=== PATIENT | male | born 1940 | race Caucasian/White ===

== ENCOUNTER 2018-02-01 09:31 | Emergency (ER) | payer MEDICARE, BC ==
[2018-02-01 09:56] VITALS: BP 94/69
--- NOTE | 2018-02-01 10:33 | XRAY Report ---
Reason: fall. pain swelling Procedure Date: 02/01/2018 Accession Number: [id number] / [id number] Procedure: XR - Hand 3 View LT CPT Code: FULL RESULT: EXAM: LEFT HAND RADIOGRAPHY EXAM DATE: 02/01/2018 09:59 AM. CLINICAL HISTORY: Fall. pain swelling. COMPARISON: None. TECHNIQUE: 3 views. FINDINGS: Bones: Comminuted third metacarpal fracture from proximal to distal but not definitely into the joint 5 mm offset. Comminuted fourth metacarpal fracture with vertical components without significant offset. Osteopenia Joints: Degenerative changes first metacarpocarpal joint space. STT joint space osteophyte. PIP and DIP joint space narrowing. Soft Tissues: Normal. No soft tissue swelling. IMPRESSION: 1. Third and fourth metacarpal fractures. 2. Osteopenia 3. DJD RADIA
[2018-02-01] MEDS ORDERED: ACETAMINOPHEN 325 MG TABLET PO STA (11:26)
--- NOTE | 2018-02-01 11:35 | ED Physician Documentation ---
History of Present Illness - Stated complaint Stated Complaint: LEFT HAND INJ - Chief complaint Chief Complaint: Ext Problem - Additonal information Additional information: hx from pt 77 male long standing balance issues and falls uses a walker fell and hurt his hand several days ago no head neck chest abd hip injury - just his L hand Review of Systems Musculoskeletal: reports: Other (hand injury). denies: Neck pain, Back pain Neurologic: denies: Head injury PD PAST MEDICAL HISTORY - Past Medical History Past Medical History: Yes - Present Medications Home Medications: Ambulatory Orders Medication Instructions Recorded Confirmed Finasteride 5 mg PO DAILY 12/31/15 01/14/16 Propranolol [Inderal] 40 mg PO DAILY 12/31/15 01/14/16 Tamsulosin [Flomax] 0.4 mg PO DAILY 12/31/15 01/14/16 - Allergies Allergies/Adverse Reactions: Allergies Allergy/AdvReac Type Severity Reaction Status Date / Time No Known Drug Allergies Allergy Verified 02/01/18 09:56 - Social History Does the pt smoke?: No Smoking Status: Never smoker PD ED PE NORMAL - Vitals Vital signs reviewed: Yes - General General: Alert and oriented X 3 - Cardiac Cardiac: RRR - Respiratory Respiratory: No respiratory distress, Clear bilaterally - Derm Derm: Other (ages bruises, abrasion to L lower leg) - Extremities Extremities: Other (L hand swollen and bruised, no open wound, nl cascade, MSV intact, wrist NT) Results - Vitals Vitals: Vital Signs - 24 hr 02/01/18 09:54 Temperature 36.6 C Heart Rate 98 Respiratory 16 Rate Blood Pressure 94/69 O2 Saturation 98 Oxygen O2 Source Room air - Rads (name of study) hand Radiology: See rad report (comminuted fx 3rd MC 5mm displacement, comminuted 4th MC fx s displacement) Procedures - Splint (location) LUE Splint applied by: Tech Type of splint: Short arm, Volar cock up (to tips of fingers) Other: Patient tolerated well, No complications, Neurovascular intact PD MEDICAL DECISION MAKING - Sepsis Event Vital Signs: Vital Signs - 24 hr 02/01/18 09:54 Temperature 36.6 C Heart Rate 98 Respiratory 16 Rate Blood Pressure 94/69 O2 Saturation 98 Oxygen O2 Source Room air Departure - Departure Disposition: 01 Home, Self Care Clinical Impression: Frequent falls Hand fracture, left Qualifiers: Encounter type: initial encounter Fracture type: closed Qualified Code(s): S62.92XA - Unspecified fracture of left wrist and hand, initial encounter for closed fracture Condition: Good Instructions: Falls Risks Prevent, ED Fx Hand Closed, ED Splint Care Fiberglass Follow-Up: [facility] [Provider Group] Comments: Your broke two bones in your hand and one of them is a bit displaced. We have splinted the hand to prevent more bone movement and to help with the pain. Tylenol for the pain Ice and elevation to decrease the swelling will help too. Please follow up with orthopedics - you may need a wire to hold the bone in place while it heals. Also you will have a hard time using your walker while your hand is splinted and healing - consider using a wheelchair for a few weeks - you can borrow one from the [facility]
== END 2018-02-01 12:21 | disposition home or self-care (01) ==
LOC: ED 09:31
DX: S62.303A Unspecified fracture of third metacarpal bone, left hand, initial encounter for closed fracture (principal); S62.305A Unspecified fracture of fourth metacarpal bone, left hand, initial encounter for closed fracture; W19.XXXA Unspecified fall, initial encounter; Z91.81 History of falling
CPT/HCPCS: 29125; 73130; 99283; A9270

== ENCOUNTER 2018-04-23 00:51 | Emergency (ER) | payer MEDICARE, BC ==
[2018-04-23 00:59] VITALS: BP 111/93
--- NOTE | 2018-04-23 01:13 | ED Physician Documentation ---
History of Present Illness - Stated complaint Stated Complaint: SLEEPLESSNESS - Chief complaint Chief Complaint: General - History obtained from History obtained from: Patient - History of Present Illness Timing: How many weeks ago (1) - Additonal information Additional information: c/o 1 week of insomnia. He says he has not had any effective sleep at night for approximately 1 week, and finally gets sleep most mornings for a few hours (9 AM until about noon). He initially denies h/o similar problem, but he then recalls his doctor did once prescribe a sleep medication for him; he says it would only work for a few hours, and it was many years ago and he cannot recall the name of the medication. Review of Systems Neurologic: denies: Headache Psychiatric: reports: Insomnia. denies: Hallucinations, Delusions, Anxiety PD PAST MEDICAL HISTORY - Past Medical History : Benign prostate hypertrophy - Present Medications Home Medications: Ambulatory Orders Medication Instructions Recorded Confirmed Finasteride 5 mg PO DAILY 12/31/15 01/14/16 Tamsulosin [Flomax] 0.4 mg PO DAILY 12/31/15 01/14/16 LORazepam [Lorazepam] 0.5 - 1 mg PO QPM PRN #20 tablet 04/23/18 - Allergies Allergies/Adverse Reactions: Allergies Allergy/AdvReac Type Severity Reaction Status Date / Time No Known Drug Allergies Allergy Verified 04/23/18 00:59 - Living Situation Living Situation: reports: Alone Living Arrangement: reports: At home - Social History Does the pt smoke?: No Smoking Status: Never smoker PD ED PE NORMAL - Vitals Vital signs reviewed: Yes - General General: Alert and oriented X 3, No acute distress, Well developed/nourished - Cardiac Cardiac: RRR, No murmur - Respiratory Respiratory: No respiratory distress, Clear bilaterally - Neuro Neuro: Alert and oriented X 3 - Psych Psych: Normal mood, Normal affect Results - Vitals Vitals: Vital Signs - 24 hr 04/23/18 00:53 Temperature 36.3 C L Heart Rate 109 H Respiratory 18 Rate Blood Pressure 111/93 H O2 Saturation 100 Oxygen O2 Source Room air PD MEDICAL DECISION MAKING - ED course Complexity details: considered differential, d/w patient ED course: Pleasant, conversant, and appropriate. Chief and only c/o is insomnia. He says he has 2 glasses of wine per night, but has not tonight nor last night. He is having significant stress in his life; his was placed in a NH for dementia in [place] earlier this year, and he subsequently sold their house in [place]. He denies SI. Departure - Departure Disposition: Home, Self Care Clinical Impression: Insomnia Qualifiers: Insomnia type: unspecified Qualified Code(s): G47.00 - Insomnia, unspecified Condition: Good Instructions: ED Insomnia Follow-Up: Elan Carroll MD [Primary Care Provider] - Within 1 week Prescriptions: LORazepam [Lorazepam] 0.5 - 1 mg PO QPM PRN #20 tablet PRN Reason: Insomnia Discharge Date/Time: 04/23/18 01:43
[2018-04-23] MEDS ORDERED: LORazepam 0.5 MG TABLET PO STA (01:27)
== END 2018-04-23 01:43 | disposition home or self-care (01) ==
LOC: ED 00:51
DX: G47.00 Insomnia, unspecified (principal)
CPT/HCPCS: 99283; A9270

== ENCOUNTER 2018-12-01 15:38 | Outpatient (CLI) | payer MEDICARE, BC ==
--- NOTE | 2018-12-02 15:43 | XRAY Report ---
Reason: L LOWER BACK PAIN Procedure Date: 12/01/2018 Accession Number: [id number] / [id number] Procedure: XR - Lumbar Spine 2 View CPT Code: FULL RESULT: EXAM: LUMBOSACRAL SPINE RADIOGRAPHY EXAM DATE: 12/01/2018 03:58 PM. CLINICAL HISTORY: L LOWER BACK PAIN. COMPARISONS: None. TECHNIQUE: 2 views. FINDINGS: Alignment: Within normal limits. No spondylolisthesis or scoliosis. Bones: Five [id number] lumbar vertebral bodies are present. Severe osteopenia, limiting evaluation for nondisplaced fractures. Severe compression deformities of L1 and L4 and moderate compression deformities of T12 and L5. Vertebroplasty changes of L2, L4, and L5. Disks: Multilevel degenerative disk disease, with moderate narrowing worse from L3-L5. Facets: Severe lower lumbar facet degenerative changes. Sacroiliac Joints: Unremarkable. Soft Tissues: The visualized bowel gas pattern is unremarkable. IMPRESSION: Multiple chronic appearing compression deformities with prior vertebroplasty changes at L2, L4, and L5. Moderate L1 compression deformity also present. Diffuse osteopenia. RADIA
== END 2018-12-01 15:39 | disposition home or self-care (01) ==
LOC: DI 15:38
PROVIDERS: ATTEND Internal Medicine
DX: M51.36 Other intervertebral disc degeneration, lumbar region (principal); M47.816 Spondylosis without myelopathy or radiculopathy, lumbar region; M43.8X6 Other specified deforming dorsopathies, lumbar region; M85.88 Other specified disorders of bone density and structure, other site
CPT/HCPCS: 72100

== ENCOUNTER 2020-02-13 15:13 | Outpatient (CLI) | payer MEDICARE, BC ==
--- NOTE | 2020-02-13 16:53 | DEXA Report ---
PROCEDURE: Dexa Spine and/or Hip INDICATIONS: LUMBAR COMPRESSION FX, OSTEOPENIA TECHNIQUE: Dual energy x-ray absorptiometry (DXA) was performed on a [employer] System. Regions measur ed are the AP Spine, femoral neck, and if needed forearm. COMPARISON: None. FINDINGS: Lumbar Spine: Bone Mineral Density 0.929 g/cm/cm,T score -2.3, severe osteopenia Left Hip: Bone Mineral Density 0.616 g/cm/cm,T score -3.4, severe osteoporosis Left Femoral Neck: Bone Mineral Density 0.609 g/cm/cm, T score -3.5, severe osteoporosis (T score greater or equal to -1.0: NORMAL) (T score from -1.1 to -2.4: OSTEOPENIA) (T score less than or equal to -2.5 to: OSTEOPOROSIS) Impression: Severe osteoporosis most notable in the left hip and femoral neck. Patients with diagnosis of osteoporosis or osteopenia should have regular bone mineral density assess ment. For those eligible for Medicare, routine testing is allowed once every 2 years. Testing frequ ency can be increased for patients who have rapidly progressing disease or for those who are receivin g medical therapy to restore bone mass. Reviewed by: Hina Camarillo MD on 02/13/2020 4:52 PM PDT Approved by: Hina Camarillo MD on 02/13/2020 4:52 PM PDT Station ID: [id number]
== END 2020-02-13 15:14 | disposition home or self-care (01) ==
LOC: DI 15:13
PROVIDERS: ATTEND Family Medicine
DX: Z13.820 Encounter for screening for osteoporosis (principal); M81.0 Age-related osteoporosis without current pathological fracture; M48.56XS Collapsed vertebra, not elsewhere classified, lumbar region, sequela of fracture
CPT/HCPCS: 77080

== ENCOUNTER 2021-10-20 10:25 | Outpatient (CLI) | payer MEDICARE, BC | END 2021-10-20 10:26 | disposition E | LOC: EMS 10:25 ==